=== PATIENT | female | born 1995 | race African-American/Black ===

== ENCOUNTER 2023-03-12 17:18 | Outpatient (CLI) | payer OTHER, SELFPAY ==
[2023-03-12] VITALS (8 sets, daily range): BP systolic 95–143; BP diastolic 41–70; PULSE 87–92
--- NOTE | 2023-03-12 17:55 | PC.NURSE ---
heart tones doppled bedside. FHT 156 at 1755.
[2023-03-12 18:11] LABS: Basophils Percent Auto 0.3 % (0.2-1.2); Eosinophils Percent Auto 0.3 % (0-4.4); Hematocrit 34.7 % (37.0-47.0); Hemoglobin 11.5 g/dL (12.0-15.0); Immature Granulocyte Absolute 0.13 K/mm3 (0.00-0.031); Immature Granulocyte Percent A 1.8 % (0-0.5); Lymphocytes Absolute Auto 1.19 K/mm3 (0.9-3.2); Lymphocytes Percent Auto 16.2 % (18.3-44.2); Mean Corpuscular HGB Conc 33.1 g/dl (32-36); Mean Corpuscular Hemoglobin 30.5 pg (26-34); Mean Platelet Volume 9.4 fl (7.4-10.4); Monocytes Absolute Auto 0.5 K/mm3 (0.1-0.6); Monocytes Percent Auto 7.3 % (2.6-8.5); Neutrophils Absolute Auto 5.5 K/mm3 (1.3-6.7); Neutrophils Percent Auto 74.1 % (45.5-73.1); Platelet Count Result 238 k/mm3 (150-375); Red Blood Count 3.77 M/mm3 (4.2-5.4); Red Cell Distribution Width 12.8 % (11.5-14.5); White Blood Count 7.4 K/mm3 (4.5-10.0)
[2023-03-12 18:21] LABS: Alanine Aminotransferase 21 U/L (6-35); Albumin Level 3.8 g/dL (3.5-5.1); Alkaline Phosphatase 42 U/L (38-126); Anion Gap 9 mmol/L (8-16); Aspartate Amino Transferase 23 U/L (14-36); Bilirubin,Total 0.3 mg/dL (0.2-1.3); Blood Urea Nitrogen 8 mg/dL (7-17); Calcium 9.2 mg/dL (8.4-10.2); Carbon Dioxide 22 mmol/L (22-30); Chloride 104 mmol/L (98-107); Estimated Glomerular Filt Rate > 60; Glucose 103 mg/dL (65-110); Potassium 3.8 mmol/L (3.4-5.0); Sodium 135 mmol/L (137-145); Uric Acid 3.6 mg/dL (2.5-7.5)
[2023-03-12 18:29] LABS: Appearance Urine Clear (Clear); Bilirubin Urine Negative (Negative); Blood Urine Negative (Negative); Color Urine Yellow (Yellow); Glucose Urine UA Negative (Negative); Ketones Urine Negative (Negative); Leukocyte Esterase Ur Negative LEU/UL (NEGATIVE); Nitrate Urine Negative (Negative); Protein Urine Negative (Negative); Specific Grav Ur 1.019 (1.001-1.035)
[2023-03-12 18:35] LABS: Add Urine Microscopic? NO
[2023-03-12 18:54] LABS: Creatinine Urine 112.2 mg/dL
[2023-03-12 18:57] LABS: Total Protein Urine Random < 5 mg/dL; Ur Ttl Prot Creatinine Ratio < 0.04 mg/mg (0-0.20)
--- NOTE | 2023-03-12 19:21 | PC.NURSE ---
Patient worked up for PIH. All labs reported to MD Saavedra. MD Saavedra said ok for patient to go home. Patient given PIH/ Preeclampsia handouts.
== END 2023-03-12 19:30 | disposition home or self-care (01) ==
LOC: ANHOBOP 17:24 → ANHOBPP 17:24
PROVIDERS: PCP Hospitalist; Visit Provider Obstetrics & Gynecology
DX: O13.9 Gestational [pregnancy-induced] hypertension without significant proteinuria, unspecified trimester (principal); Z3A.00 Weeks of gestation of pregnancy not specified
CPT/HCPCS: 36415; 80053; 81003; 82570; 84156; 84550; 85025; 87086; 99199

== ENCOUNTER 2023-07-13 11:57 | Outpatient (RCR) | payer OTHER, SELFPAY ==
[2023-05-26 10:12] VITALS: BP 121/59; PULSE 93
[2023-05-29 11:21] VITALS: BP 129/63; PULSE 93
[2023-06-05 09:53] VITALS: BP 127/69; PULSE 101
[2023-06-08 09:34] VITALS: BP 105/55; PULSE 105
[2023-06-11 10:53] VITALS: BP 107/72; PULSE 93
--- NOTE | 2023-06-15 09:50 | PC.NURSE ---
Pt. arrives to Unit for weekly NST. Reports good movement, HX of gdm. Denies pain, ctx, leaking of fluid/bleeding.
[2023-06-15 10:24] VITALS: BP 110/70; PULSE 91
[2023-06-18 11:16] VITALS: BP 112/59
[2023-06-22 11:55] VITALS: BP 112/43; PULSE 109
[2023-06-26 10:18] VITALS: BP 98/63; PULSE 85
[2023-06-30 10:34] VITALS: BP 115/70; PULSE 108
[2023-07-04 10:04] VITALS: BP 128/86; PULSE 92
[2023-07-08 09:53] VITALS: BP 126/50; PULSE 99
--- NOTE | ~2023-07-13 | US_ITS ---
EXAMINATION: US OB BPP wo non-stress DATE: 07/08/2023 10:22 INDICATION: Insulin-dependent maternal gestational diabetes during third trimester TECHNIQUE: Real-time pelvic ultrasound was performed. The interpreting radiologist was not present fo r the study. COMPARISON: None. FINDINGS: There is a single living fetus in vertex presentation. The placenta is anterior. heart rate is 141 beats per minute (bpm). Amniotic fluid volume is subjectively normal. Biophysical profile performed by the technologist: breathing (30 sec sustained breathing in 30 minutes): 2 out of 2 movement (3 gross body movements in 30 minutes): 2 out of 2 tone (one episode of vdvdbnq-akfaijuae-nbhgnpa limb movement): 2 out of 2 Amniotic fluid pocket (2 cm): 2 out of 2 Total score: 8 out of 8 IMPRESSION: 1. Single living fetus in vertex presentation with heart rate of 141 bpm. 2. Biophysical profile 8 out of 8. Reviewed, dictated and finalized at location A.
--- NOTE | ~2023-07-13 | US_ITS ---
EXAMINATION: US OB BPP wo non-stress DATE: 06/30/2023 11:14 INDICATION: Maternal gestational diabetes during third trimester of . TECHNIQUE: Real-time pelvic ultrasound was performed. The interpreting radiologist was not present fo r the study. COMPARISON: 06/22/2023 FINDINGS: There is a single living fetus in vertex presentation. The placenta is anterior. heart rate is 148 beats per minute (bpm). Biophysical profile performed by the technologist: breathing (30 sec sustained breathing in 30 minutes): 2 out of 2 movement (3 gross body movements in 30 minutes): 2 out of 2 tone (one episode of uztcrbb-qlvnbslye-qupmkmc limb movement): 2 out of 2 Amniotic fluid pocket (2 cm): 2 out of 2 Total score: 8 out of 8 IMPRESSION: 1. Single living fetus in vertex presentation with heart rate of 148 bpm. 2. Biophysical profile 8 out of 8. Reviewed, dictated and finalized at location A.
--- NOTE | ~2023-07-13 | US_ITS ---
EXAMINATION: US OB BPP wo non-stress DATE: 06/22/2023 11:55 INDICATION: Gestational diabetes, third trimester TECHNIQUE: Real-time pelvic ultrasound was performed. The interpreting radiologist was not present fo r the study. COMPARISON: None. FINDINGS: There is a single living fetus in vertex presentation. The placenta is anterior. heart rate is 155 beats per minute (bpm). Biophysical profile performed by the technologist: breathing (30 sec sustained breathing in 30 minutes): 2 out of 2 movement (3 gross body movements in 30 minutes): 2 out of 2 tone (one episode of huocyeb-rnyfsxxoa-oswxlmx limb movement): 2 out of 2 Amniotic fluid pocket (2 cm): 2 out of 2 Total score: 8 out of 8 IMPRESSION: 1. Single living fetus in vertex presentation. 2. Biophysical profile 8 out of 8. Reviewed, dictated and finalized at location B.
--- NOTE | ~2023-07-13 | US_ITS ---
EXAMINATION: US OB BPP wo non-stress DATE: 05/26/2023 10:08 INDICATION: Gestational diabetes, third trimester TECHNIQUE: Real-time pelvic ultrasound was performed. The interpreting radiologist was not present fo r the study. COMPARISON: None. FINDINGS: There is a single living fetus in vertex presentation. The placenta is anterior/fundal. heart r ate is 145 beats per minute (bpm). Biophysical profile performed by the technologist: breathing (30 sec sustained breathing in 30 minutes): 2 out of 2 movement (3 gross body movements in 30 minutes): 2 out of 2 tone (one episode of qnolkcg-izssotayy-wupyxuv limb movement): 2 out of 2 Amniotic fluid pocket (2 cm): 2 out of 2 Total score: 8 out of 8 IMPRESSION: 1. Single living fetus in vertex presentation. 2. Biophysical profile 8 out of 8. Reviewed, dictated and finalized at location A.
--- NOTE | ~2023-07-13 | US_ITS ---
EXAMINATION: US OB BPP wo non-stress DATE: 06/11/2023 10:48 INDICATION: Gestational diabetes, third trimester TECHNIQUE: Real-time pelvic ultrasound was performed. The interpreting radiologist was not present fo r the study. COMPARISON: 06/02/2023 FINDINGS: There is a single living fetus in vertex presentation. The placenta is anterior. heart rate is 144 beats per minute (bpm). Biophysical profile performed by the technologist: breathing (30 sec sustained breathing in 30 minutes): 2 out of 2 movement (3 gross body movements in 30 minutes): 2 out of 2 tone (one episode of auxhgbo-jenerspmr-hcfzuub limb movement): 2 out of 2 Amniotic fluid pocket (2 cm): 2 out of 2 Total score: 8 out of 8 IMPRESSION: 1. Single living fetus in vertex presentation. 2. Biophysical profile 8 out of 8. Reviewed, dictated and finalized at location L.
--- NOTE | ~2023-07-13 | US_ITS ---
EXAMINATION: US OB limited w BPP DATE: 06/02/2023 20:00 INDICATION: variable deceleration; 32 weeks gestation . TECHNIQUE: Real-time ultrasound of the pelvis was performed. COMPARISON: 05/26/2023 FINDINGS: There is a single living fetus in vertex presentation, longitudinal lie. The placenta is anterior an d distant from the cervix. heart rate is 140 bpm. The amniotic fluid index is 13.3 cm, which is normal (5th to 95th percentile is 8.6 to 24.2 cm). Biophysical profile performed by the technologist: breathing (30 sec sustained breathing in 30 minutes): 2 out of 2. movement (3 gross body movements in 30 minutes: 2 out of 2. tone (one episode of tmgpmaq-jufzjghts-hchqfet limb movement): 2 out of 2. Amniotic fluid pocket (2 cm): 2 out of 2. Total score: 8 out of 8. IMPRESSION: Single living fetus in vertex presentation. Biophysical profile 8 out of 8. Normal SAMSON. Reviewed, dictated and finalized at location K.
[2023-07-13 12:43] LABS: Basophils Percent Auto 0.3 % (0.2-1.2); Eosinophils Percent Auto 0.3 % (0-4.4); Hematocrit 38.1 % (37.0-47.0); Hemoglobin 12.7 g/dL (12.0-15.0); Immature Granulocyte Absolute 0.07 K/mm3 (0.00-0.031); Immature Granulocyte Percent A 0.9 % (0-0.5); Lymphocytes Absolute Auto 0.97 K/mm3 (0.9-3.2); Mean Corpuscular HGB Conc 33.3 g/dl (32-36); Mean Corpuscular Hemoglobin 29.4 pg (26-34); Mean Corpuscular Volume 88.2 fl (80-100); Mean Platelet Volume 10.3 fl (7.4-10.4); Monocytes Absolute Auto 0.4 K/mm3 (0.1-0.6); Monocytes Percent Auto 5.9 % (2.6-8.5); Neutrophils Absolute Auto 5.9 K/mm3 (1.3-6.7); Neutrophils Percent Auto 79.6 % (45.5-73.1); Platelet Count Result 193 k/mm3 (150-375); Red Blood Count 4.32 M/mm3 (4.2-5.4); Red Cell Distribution Width 13.3 % (11.5-14.5); White Blood Count 7.5 K/mm3 (4.5-10.0)
[2023-07-13 12:52] LABS: Alanine Aminotransferase 23 U/L (6-35); Albumin Level 3.5 g/dL (3.5-5.1); Alkaline Phosphatase 90 U/L (38-126); Anion Gap 5 mmol/L (8-16); Aspartate Amino Transferase 23 U/L (14-36); Bilirubin,Total 0.5 mg/dL (0.2-1.3); Blood Urea Nitrogen 11 mg/dL (7-17); Calcium 9.2 mg/dL (8.4-10.2); Carbon Dioxide 22 mmol/L (22-30); Chloride 105 mmol/L (98-107); Estimated Glomerular Filt Rate > 60; Glucose 142 mg/dL (65-110); Potassium 3.8 mmol/L (3.4-5.0); Sodium 132 mmol/L (137-145); Uric Acid 4.2 mg/dL (2.5-7.5)
[2023-07-13 13:15] LABS: Add Urine Microscopic? YES; Appearance Urine Clear (Clear); Bacteria Urine 2+ /hpf; Bilirubin Urine 1+ (Negative); Blood Urine 1+ (Negative); Color Urine Yellow (Yellow); Glucose Urine UA Negative (Negative); Ketones Urine 1+ mg/dL (Negative); Leukocyte Esterase Ur Negative LEU/UL (NEGATIVE); Nitrate Urine Negative (Negative); Non Pathogenic Casts 0-2; Protein Urine 1+ mg/dL (Negative); Specific Grav Ur 1.025 (1.001-1.035); Squamous Epithelial Cell Urine Moderate /hpf (Few); WBC Urine 0-5 /hpf (0-3)
[2023-07-13 13:20] LABS: Creatinine Urine 289.8 mg/dL
[2023-07-13 13:23] LABS: Total Protein Urine Random < 5 mg/dL
[2023-07-13 13:24] LABS: Ur Ttl Prot Creatinine Ratio < 0.02 mg/mg (0-0.20)
[2023-07-13 15:00] VITALS: BP 114/66; PULSE 85
--- NOTE | 2023-07-13 15:07 | WPDANESEPP ---
Anes - Eval Pre Procedure Procedure: c/s Date/Time: 07/13/23 15:07 Preop Diagnosis: macrosomia Pre Op Diagnosis: NST, BPP Patient Data Age: 28 Gender: F Height: Weight: Last Vital Signs Pulse 99 07/08/23 09:53 BP 126/50 L 07/08/23 09:53 Allergies Allergy/AdvReac Type Severity Reaction Status Date / Time No Known Allergies Allergy Verified 07/06/23 08:54 Home Medications Medication Instructions Recorded Confirmed Type aspirin 81 mg tablet,delayed 162 mg PO DAILY 02/16/23 07/06/23 History release (Adult Low Dose Aspirin) insulin lispro 200 unit/mL (3 mL) See Rx Instructions subcut BID #6 04/16/23 07/06/23 Rx subcutaneous pen (Humalog KwikPen mL U-200 Insulin) insulin glargine-yfgn 100 unit/mL See Rx Instructions subcut DAILY 04/20/23 07/06/23 Rx (3 mL) subcutaneous pen (Semglee #15 mL (insulin glargine-yfgn) Pen) vit no.95-ferrous 1 tablet PO DAILY 06/11/23 07/06/23 History fumarate 28 mg-folic acid 800 mcg tablet () Laboratory Tests 07/13/23 07/13/23 07/13/23 12:33 13:08 14:53 WBC 7.5 K/mm3 (4.5-10.0) RBC 4.32 M/mm3 (4.2-5.4) Hgb 12.7 g/dL (12.0-15.0) Hct 38.1 % (37.0-47.0) MCV 88.2 fl (80-100) MCH 29.4 pg (26-34) MCHC 33.3 g/dl (32-36) RDW 13.3 % (11.5-14.5) Plt Count 193 k/mm3 (150-375) MPV 10.3 fl (7.4-10.4) Immature Gran % (Auto) 0.9 H % (0-0.5) Neut % (Auto) 79.6 H % (45.5-73.1) Lymph % (Auto) 13.0 L % (18.3-44.2) Preble % (Auto) 5.9 % (2.6-8.5) Eos % (Auto) 0.3 % (0-4.4) Baso % (Auto) 0.3 % (0.2-1.2) Lymph # (Auto) 0.97 K/mm3 (0.9-3.2) Preble # (Auto) 0.4 K/mm3 (0.1-0.6) Eos # (Auto) 0.0 K/mm3 (0-0.3) Baso # (Auto) 0.0 K/mm3 (0.0-0.1) Abs Immat Gran (auto) 0.07 H K/mm3 (0.00-0.031) Absolute Neuts (auto) 5.9 K/mm3 (1.3-6.7) Absolute Nucleated RBC 0.0 K/mm3 (0.0-0.012) Nucleated RBC % 0.0 % (0.0-0.2) Sodium 132 L mmol/L (137-145) Potassium 3.8 mmol/L (3.4-5.0) Chloride 105 mmol/L (98-107) Carbon Dioxide 22 mmol/L (22-30) Anion Gap 5 L mmol/L (8-16) BUN 11 mg/dL (7-17) Creatinine 0.70 mg/dL (0.7-1.0) Estim Creat Clear Calc Not Reportable Estimated GFR > 60 (59 - ) Glucose 142 H mg/dL (65-110) Uric Acid 4.2 mg/dL (2.5-7.5) Calcium 9.2 mg/dL (8.4-10.2) Total Bilirubin 0.5 mg/dL (0.2-1.3) AST 23 U/L (14-36) ALT 23 U/L (6-35) Alkaline Phosphatase 90 U/L (38-126) Total Protein 7.0 g/dL (6.3-8.2) Albumin 3.5 g/dL (3.5-5.1) Urine Color Yellow (Yellow) Urine Appearance Clear (Clear) Urine pH 6.0 (5.0-9.0) Ur Specific Gilbert 1.025 (1.001-1.035) Urine Protein 1+ H mg/dL (Negative) Urine Glucose (UA) Negative mg/dL (Negative) Urine Ketones 1+ H mg/dL (Negative) Ur Blood (Man) 1+ H (Negative) Urine Nitrate Negative (Negative) Urine Bilirubin 1+ H (Negative) Urine Urobilinogen 1.0 mg/dL (<2.0) Ur Leukocyte Esterase Negative DOTTIE/UL (NEGATIVE) Urine RBC 11-20 H /hpf (0-2) Urine WBC 0-5 /hpf (0-3) Ur Squamous Epith Cells Moderate /hpf (Few) Urine Bacteria 2+ H /hpf Urine Casts 0-2 U Random Total Protein < 5 mg/dL Urine Creatinine 289.8 mg/dL Protein/Creat Ratio 2 < 0.02 mg/mg (0-0.20) RPR Pending Patient hx anesthesia problems: none Family hx anesthesia problems: none Prior surgeries: previous vaginal deliv
--- NOTE | 2023-07-13 16:29 | PM.IMHP ---
H&P: HPI History of Present Illness Date/Time: 07/13/23 16:29 28-year-old female presents at 39 weeks for primary delivery. She is a 2 para 1 1 prior vaginal delivery, this being a 6lb delivery in 2013. This has been complicated by obese ED, as well as gestational diabetes for which she is currently on insulin and metformin. Recent ultrasound revealed 4300g baby and recommendation was to proceed with delivery for which she agrees. Remainder of records are on the chart and available for review. Chief Complaint: Review of Systems Constitutional: Constitutional: Reports as per [facility] Past Medical History Medical History Abnormal glucose tolerance in Encounter for IUD insertion (10/03/15) Mirena insertion Encounter for IUD removal (02/20/20) Mirena removal Encounter for screening examination for sexually transmitted disease Gestational diabetes H/O trichomonal vaginitis (02/10/22) treated with meds Prediabetes Vaginal discharge Family History Family History Other Breast cancer maternal aunt Social History Social History Smoking status: Never smoker Alcohol intake: former Alcohol use details: ocassional Substance use: never Substance use type: does not use Lack of Transportation: No Lack of Food: Never True Current Housing: I Have Housing Concerned About Future Housing: No Difficulty Paying Gas/Electric Bills: No Difficulty Paying for Meds: No Currently Unemployed: No Education: Bachelor's Degree Difficulty w/ Childcare or Family Care: No Living arrangements: other Additional living arrangements comments: single 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 Gender identity (if verbalized by the patient): Female Sexual Orientation (if Verbalized by the Patient): Straight or Heterosexual Spiritual care concerns: No Meds Home Medications and Allergies Home Medications Medication Instructions Recorded Confirmed Type aspirin 81 mg tablet,delayed 162 mg PO DAILY 02/16/23 07/06/23 History release (Adult Low Dose Aspirin) insulin lispro 200 unit/mL (3 mL) See Rx Instructions subcut BID #6 04/16/23 07/06/23 Rx subcutaneous pen (Humalog KwikPen mL U-200 Insulin) insulin glargine-yfgn 100 unit/mL See Rx Instructions subcut DAILY 04/20/23 07/06/23 Rx (3 mL) subcutaneous pen (Semglee #15 mL (insulin glargine-yfgn) Pen) vit no.95-ferrous 1 tablet PO DAILY 06/11/23 07/06/23 History fumarate 28 mg-folic acid 800 mcg tablet () Allergies Allergy/AdvReac Type Severity Reaction Status Date / Time No Known Allergies Allergy Verified 07/06/23 08:54 Vital Signs Vital Signs - 24 hr 07/13/23 15:00 Pulse Rate 85 Blood Pressure [Left Arm] 114/66 Exam Const: General: cooperative, healthy appearing and comfortable Resp: Effort & Inspection: normal respiratory effort Auscultation: clear to auscultation bilaterally Cardio: Rate: regular rate Rhythm: regular rhythm GI: Inspection: normal to inspection Auscultation: normal bowel sounds : Bimanual exam- vagina & uterus: enlarged ( fundal height 43cm heart tone 140) H&P: Results Labs Labs: Short CBC 07/13/23 Range/Units 12:33 WBC 7.5 (4.5-10.0) K/mm3 Hgb 12.7 (12.0-15.0) g/dL Hct 38.1 (37.0-47.0) % Plt Count 193 (150-375) k/mm3 BMP 07/13/23 12:33 Sodium 132 L Potassium 3.8 Chloride 105 Carbon Dioxide 22 BUN 11 Creatinine 0.70 Glucose 142 H Calcium 9.2 Liver Function 07/13/23 Range/Units 12:33 Total Bilirubin 0.5 (0.2-1.3) mg/dL AST 23 (14-36) U/L ALT 23 (6-35) U/L Alkaline Phosphatase 90 (38-126) U/L Albumin 3.5 (3.5-5.1) g
[2023-07-14 13:24] LABS: Rapid Plasma Reagin Non-Reactive (NonReactive)
== END 2023-08-20 11:27 | disposition home or self-care (01) ==
LOC: ANHOBOP 11:57
PROVIDERS: PCP Hospitalist; Visit Provider Obstetrics & Gynecology
DX: O24.419 Gestational diabetes mellitus in pregnancy, unspecified control (principal); Z3A.31 31 weeks gestation of pregnancy; Z3A.32 32 weeks gestation of pregnancy; Z3A.33 33 weeks gestation of pregnancy; O36.8130 Decreased fetal movements, third trimester, not applicable or unspecified; Z3A.34 34 weeks gestation of pregnancy; Z3A.35 35 weeks gestation of pregnancy; Z3A.36 36 weeks gestation of pregnancy; Z3A.37 37 weeks gestation of pregnancy; Z3A.38 38 weeks gestation of pregnancy
CPT/HCPCS: 36415; 59025; 76815; 76819; 80053; 81001; 82570; 84156; 84550; 85025; 86592; 86850; 86900; 86901

== ENCOUNTER 2023-07-14 04:25 | Inpatient (IN) | payer OTHER, SELFPAY ==
[2023-07-14] VITALS (49 sets, daily range): BP systolic 93–143; BP diastolic 43–120; PULSE 71–251; RESP 16–21; TEMP 36.1–36.8; O2SAT 81–100; BMI 64.0
--- NOTE | 2023-07-14 04:57 | LDADM ---
This patient, Haylee Mack, was admitted to Labor/Delivery/Recovery 119 on 07/14/23 at 04:25. Plans for labor, pain management and were discussed with patient. Patient/family oriented to hospital policies and general routines including ID bracelet, bed and alarms, visiting hours, pain management, procedures, bathroom and other care routines, personal items, smoking policy, room service/diet and guest tray routines, security routines, and visiting hours. Patient/Family are encouraged to report perceived risks to care and to ask questions if they do not understand what they are told or what they should do. See OBIX for further documentation.
[2023-07-14] MEDS: LACTATED RINGERS 1,000 ML 999 ML IV CONT (05:20)
--- NOTE | 2023-07-14 06:01 | P.PNAN_ITS ---
Anes - Eval Final PreProcedure Day of Procedure 07/14/23 06:01 Patient weight: super morbidly obese Heart: regular rate and rhythm Lungs: clear to auscultation and normal air movement Airway: Mallampati scale class II Neurological: alert and oriented Last oral intake: >/= 8 hours ASA classification: III Emergent: no Anesthetic plan: proceed Anesthesia type and monitoring: regional spinal and standard monitoring Results Review: All pre-operative results and documents have been reviewed as part of the pre- operative evaluation. Informed Consent: The patient's anesthetic plan and its attendant risks and benefits were discussed with the patient/family/POA. Questions were solicited and answers provided to the satisfaction of the patient/family/POA.
--- NOTE | 2023-07-14 06:23 | WPDHPUPDATE1 ---
History and Physical Update Update Date/Time: 07/14/23 06:23 History and Physical has been reviewed, including an updated exam of the patient. There are NO changes in the patient's condition. Risks, benefits, and alternatives have been discussed and questions answered. Patient agrees to proceed with procedure.
[2023-07-14] MEDS: ceFAZolin 3 GM/D5W 100 ML 100 ML IVPB (06:25)
--- NOTE | 2023-07-14 07:41 | PM.OBPRVD ---
OB - Delivery Note Procedure Procedure: Procedures Operation Date: 07/14/23 06:30 <No data on this case meets the specified criteria> Events: Gestational Diabetes and Macrosomia Delivery monitor: External FHT and External Uterine Route of delivery: Prior to decision for section, ACOG/SMFM labor guidelines were considered and discussed with the patient and staff. Decision made to proceed with the section.: Yes Specimen: Yes Quantitative Blood Loss (ml): 745 Anesthesia type: Epidural Disposition: PACU Complications: None Narrative: Patient prepped draped usual manner for this procedure. Pfannenstiel incision was made and carried down to the fascia through the subcutaneous tissue. Fascia was then extended bilaterally the length of skin incision superiorly and inferiorly the rectus muscles were then dissected and the fascia was dissected away from the rectus muscles. Peritoneum was then entered and bladder flap developed difficulty. Uterus was scored low transverse manner and clear fluid was noted. Vertex was delivered out difficulty, rest of baby was delivered cord clamped cut placenta was removed manually. Uterus was exteriorized cleared of membranes and clots and then closed using 0 Monocryl running interlocking manner with good hemostasis and approximation noted. Uterus was turned the abdomen and both gutters were cleared of serosanguineous fluid and clots fascia was approximated 0 Vicryl left angle midline in a running midline with good approximation noted. Subcutaneous tissue was cauterized bleeders and closed is running manner to approximate the subcuticular space. Skin tiffany then used to approximate the skin with good approximation noted. Patient sent to recovery room in stable condition. [place] Baby Weeks of gestation at delivery: 39 Infant gender: Male Weight (pounds): 9 Weight (ounces): 14 presentation: vertex Placenta delivery description: Manual Removal Cord Vessel Description: 3 Vessels score one minute: 8 score five minutes: 9 AMG Delivery Billing Delivery Delivery: Delivery Charge
[2023-07-14] MEDS: OXYTOCIN 30 UNITS/NS 500 ML 30 UNITS/500 ML BAG 125 UNITS IV CONT (08:15)
--- NOTE | 2023-07-14 12:46 | OBPPTRN ---
1032 Patient transferred to post room #277 via bed. Support person present. Oriented to unit, room, information board, rooming in, admission packet and security measures. Patient verbalizes understanding.
[2023-07-14] MEDS: DEXTROSE 5%/0.45% SOD CHL 1,000 ML 125 ML IV CONT (13:12)
--- NOTE | 2023-07-14 15:25 | PC.NURSE ---
Addendum entered by Palmira Rendon RN 07/14/23 15:31: note [id number] Original Note: [id number] Introductions were made, then consulted with patient to assess needs related to . Mother led the conversation with her?plans to feed?her and the?experience so far. Mother works well with her with encouragement and education. Encouraged understanding of the benefits of skin to skin (demonstrating unwrapping infant and placing upright on her chest), stimulating with massage touch, changing positions to encourage wakefulness, how to watch for early feeding cues, responsive feeding, feeding on demand (aiming for 8-12 times in 24 hours, about every 2-3 hours), milk production, building/maintaining a milk supply, duration of feeding, signs of adequate intake/output and how to record on the feeding sheet. Reviewed positioning, alignment, supporting the breast to facilitate a deep latch, rolled up wash rag to lift the breast, asymmetrical latch (off-center), leading with the chin with a big, open, wide gape and body close to mother. latched optimally to the left breast in football position. Education given to parents of how to visualize suck/swallow ratios and listen for drinking at the breast. was able to maintain latch without discomfort to mother. Infant at times latched shallow. Discussed with the parents how to assess a good latch with swallowing versus and shallow latch with piston sucking and misshaped nipples. Mothers nipples are dimpled and infant can pull them out. Infant repositioned, breast movement was visualized increased at the top lip and infant was detached. Infant was brought to the right breast with football positioning and latched effectively at the breast. Nipple care reviewed with optimal latch and good positioning. Reminding mother of comfort measures of healing with a warm and wet washcloth to rinse breast, then leave open to air-dry as needed. Reviewed good handwashing when or touching the breast/nipples to prevent infection. Resources used to facilitate learning were used with the tool. Parents voiced understanding of skin to skin, stimulating with massage touch, responsive feedings, encourage if it has been 2 -2.5 hours since the start of the last , to call if infant does not latch, or if there is discomfort with . Resources provided for inpatient with name written on the communication board. Parents voiced understanding of information, demonstrated learning and will call if there is a request for assistance. Reported to primary RN.
[2023-07-14] MEDS: IBUPROFEN 600 MG TABLET PO (23:56)
[2023-07-14] MEDS: HYDROcodone/acetaminophen (*CRX) 5-325 MG TABLET 1 TAB PO (23:56)
[2023-07-15 03:50] VITALS: BP 120/71; PULSE 86; RESP 20; TEMP 36.6; O2SAT 100
[2023-07-15] MEDS: HYDROcodone/acetaminophen (*CRX) 5-325 MG TABLET 1 TAB PO ×3 (03:50→13:47)
[2023-07-15 04:00] LABS: Basophils Percent Auto 0.3 % (0.2-1.2); Eosinophils Percent Auto 0.3 % (0-4.4); Hematocrit 32.3 % (37.0-47.0); Hemoglobin 10.5 g/dL (12.0-15.0); Immature Granulocyte Absolute 0.04 K/mm3 (0.00-0.031); Immature Granulocyte Percent A 0.5 % (0-0.5); Lymphocytes Absolute Auto 1.09 K/mm3 (0.9-3.2); Lymphocytes Percent Auto 14.9 % (18.3-44.2); Mean Corpuscular HGB Conc 32.5 g/dl (32-36); Mean Corpuscular Hemoglobin 29.4 pg (26-34); Mean Corpuscular Volume 90.5 fl (80-100); Mean Platelet Volume 10.3 fl (7.4-10.4); Monocytes Absolute Auto 0.7 K/mm3 (0.1-0.6); Monocytes Percent Auto 9.1 % (2.6-8.5); Neutrophils Absolute Auto 5.5 K/mm3 (1.3-6.7); Neutrophils Percent Auto 74.9 % (45.5-73.1); Platelet Count Result 170 k/mm3 (150-375); Red Blood Count 3.57 M/mm3 (4.2-5.4); Red Cell Distribution Width 13.4 % (11.5-14.5); White Blood Count 7.3 K/mm3 (4.5-10.0)
[2023-07-15] MEDS: IBUPROFEN 600 MG TABLET PO ×3 (07:02→19:33)
[2023-07-15 07:25] VITALS: BP 130/75; PULSE 79; RESP 18; TEMP 36.8; O2SAT 97
[2023-07-15] MEDS: MULTIVIT/MIN/PREN/FOL AC/IRON TABLET 1 TAB PO (09:51)
[2023-07-15] MEDS: DOCUSATE SODIUM 100 MG CAPSULE PO ×2 (09:51→15:48)
--- NOTE | 2023-07-15 11:51 | PC.NURSE ---
[id number] Purposefully rounded to assess needs. Mother is holding her icvh-dc-vumu after bottle feeding with no attempt. Reviewed with mother her desires to feed her and she is undecided. She may continue to breastfeed or pump and feed breast milk in a bottle. Reviewed stimulating breast 8-12 times in 24 hours (approximately 2-3 hours) with or pumping to protect the milk supply. Resources used to facilitate learning were used from the mom and baby guide. Mother voiced understanding of the education shared, to call for assistance if the infant does not latch, if she would like to initiate pumping or if there is discomfort with . Reported to the primary RN.
--- NOTE | 2023-07-15 14:02 | PM.GYNPNOP ---
SOLAR SYSTEMS DESIGNER - A/P Postoperative Procedures: Procedures Operation Date: 07/14/23 06:30 Actual Procedure Side Surgeon p Section Not Applicable Mario Cottrell MD Time Spent With Patient Time: Total time spent is greater than 50% in coordination of care (as documented) at patient's floor/unit and/or counseling patient: Time with patient: 15 - 25 minutes SOLAR SYSTEMS DESIGNER- PN:Subj Post-Op Subjective Date/time seen: 07/15/23 14:03 S: Diet tolerated, ambulation well. Has yet to urinate today though catheter is just been removed. Pain well controlled though does need hydrocodone. O: Vital signs stable /afebrile Lungs clear Abdomen positive bowel sounds soft bandage in place Labs: Reviewed A: 1. Postop day 1 status post primary delivery for macrosomia and poorly controlled gestational diabetes P: 1. Increase diet and activity as tolerated 2. Instructed to attempt Tylenol and ibuprofen alternating with hydrocodone reserve for significant discomfort 3. Expect discharge on postop day 3 SOLAR SYSTEMS DESIGNER - PN: Obj Data Vital Signs Vital Signs: Vital Signs - 24 hr 07/14/23 16:55 07/14/23 17:31 07/14/23 19:35 Temperature 96.9 F L Pulse Rate 86 Respiratory Rate 20 Blood Pressure 105/57 L Pulse Oximetry 97 Oxygen Delivery Room Air Room Air 07/14/23 19:35 07/15/23 03:50 07/15/23 03:50 Temperature 98.2 F 97.9 F Pulse Rate 84 86 Respiratory Rate 18 20 Blood Pressure 115/70 120/71 Pulse Oximetry 100 100 Oxygen Delivery Room Air 07/15/23 07:02 07/15/23 07:25 Temperature 98.2 F Pulse Rate 79 Respiratory Rate 18 Blood Pressure 130/75 Pulse Oximetry 97 Oxygen Delivery Room Air Intake/Output Intake/Output: Intake & Output 07/12/23 07/13/23 07/14/23 07/15/23 23:59 23:59 23:59 23:59 Intake Total 1999 1899 Output Total 1651 8135 Balance 342 625 Meds/Results Medications: Active Medications Generic Name Dose Route Start Last Admin Trade Name Freq PRN Reason Stop Dose Admin Acetaminophen 650 mg 07/14/23 10:35 Acetaminophen 325 Mg Tablet PO Q6H PRN Mild Pain (1-3) Hydrocodone Bitart/Acetaminophen 1 tab 07/14/23 10:35 Hydrocodone/Acetaminophen (*Crx) 10-325 Mg Tablet PO Q3H PRN Pain Rated 7-10 Hydrocodone Bitart/Acetaminophen 1 tab 07/14/23 10:35 07/15/23 13:47 Hydrocodone/Acetaminophen (*Crx) 5-325 Mg Tablet PO 1 tab Q3H PRN Administration Moderate Pain (4-6) Bisacodyl 10 mg 07/14/23 10:35 Bisacodyl 10 Mg Suppository RECTAL ONCE PRN Constipation Docusate Sodium 100 mg 07/14/23 10:35 07/15/23 09:51 Docusate Sodium 100 Mg Capsule PO 100 mg BID MELIDA Administration Emollient Ointment 1 applic 07/14/23 10:35 Lanolin (Lansinoh) 7.5 Gm Cream TOPICAL PRN PRN Sore Nipples Ibuprofen 600 mg 07/14/23 10:35 07/15/23 13:46 Ibuprofen 600 Mg Tablet PO 600 mg Q6H PRN Administration Cramping Ketorolac Tromethamine 30 mg 07/14/23 10:35 Ketorolac 30 Mg/Ml Vial (*Bkc) IV PUSH Q6H PRN Pain Rated 4-6 Naloxone HCl 0.1 mg 07/14/23 10:35 Naloxone Hcl 0.4 Mg/Ml Vial IV PUSH Q2M PRN Opiate Reversal Ondansetron HCl 4 mg 07/14/23 10:35 Ondansetron Inj 4 Mg/2 Ml Vial IV PUSH Q6H PRN Nausea Polysaccharide Iron Complex 150 mg 07/14/23 10:35 07/14/23 19:55 Polysaccharide Iron Complex 150 Mg Capsule PO Not Given BIDWM MELIDA Vit/Calcium/Iron/Folic Ac 1 tab 07/14/23 10:35 07/15/23 09:51 Multivit/Min/Pren/Fol Ac/Iron Tablet PO 1 tab DAILY MELIDA Administration Simethicone 80 mg 07/14/23 10:35 Simethicone 80 Mg Tab.Chew PO Q2H PRN Gas Zolpidem Tartrate 5 mg 07/14/23 10:35 Zolpidem Tartrate (*Crx) 5 Mg Tablet PO HS PRN Insomnia Labs 07/15/23 03:54 Labs: Laboratory Results - last 24 hr 07/15/23 03:54 WBC 7.3 RBC 3.57 L Hgb 10.5 L Hct 32.3 L MCV 90.5 MCH
--- NOTE | 2023-07-15 14:34 | PC.NURSE ---
1430 - Breast pump provided due to mother's request by RN on orientation Kaylee. Reported to RN to assess flange fit. Reviewed instructions given to patient that there should be no pain with pumping, reviewed what a proper flange fit should look like, earlier today we discussed to pump for comfort and nipple stretching/stimulation for adequate milk production every 3 hours (8 times in 24 hours) 1-2 times at night. Mother voiced understanding of the education shared along with mom and baby guide and pumping handout for additional resource information. Reported to the primary RN.
[2023-07-15] MEDS: LANOLIN (LANSINOH) 7.5 GM CREAM 1 APPLIC TOPICAL (15:48)
[2023-07-15] MEDS: HYDROcodone/acetaminophen (*CRX) 10-325 MG TABLET 1 TAB PO ×2 (16:40→19:32)
[2023-07-15 19:45] VITALS: BP 147/97; PULSE 87; RESP 18; TEMP 36.6; O2SAT 99
[2023-07-15] MEDS: ONDANSETRON HCL ODT 4 MG TABLET (21:10)
[2023-07-16] MEDS: IBUPROFEN 600 MG TABLET PO ×3 (05:01→21:40)
[2023-07-16] MEDS: HYDROcodone/acetaminophen (*CRX) 10-325 MG TABLET 1 TAB PO ×2 (05:01→17:09)
[2023-07-16 07:50] VITALS: BP 148/70; PULSE 82; RESP 18; TEMP 36.7; O2SAT 99
[2023-07-16] MEDS: HYDROcodone/acetaminophen (*CRX) 5-325 MG TABLET 1 TAB PO ×3 (08:32→21:40)
[2023-07-16] MEDS: DOCUSATE SODIUM 100 MG CAPSULE PO ×2 (08:33→17:09)
--- NOTE | 2023-07-16 09:30 | WPDANLDPN2 ---
Anes-Prog Note L&D Date/Time: 07/16/23 09:30 Comfortable throughout: section Neuraxial method: spinal Epidural/Spinal procedure site: clean & non-tender Neuro status: Neuro function grossly intact. Cardiovascular status: normal Respiratory status: normal Airway patency: baseline Mental status: baseline Post-Op hydration status: normal Vital Signs: Last Vital Signs Temp 36.6 C 07/15/23 19:45 Pulse 87 07/15/23 19:45 Resp 18 07/15/23 19:45 BP 147/97 H 07/15/23 19:45 Pulse Ox 99 07/15/23 19:45 O2 Del Method Room Air 07/15/23 19:45 Pain score (VAS): 10/14 I/O: Intake & Output 07/15/23 07/16/23 07/16/23 23:59 07:59 15:59 Intake Total 240 Balance 240 Post-procedural complaints: none Patient feedback: Patient satisfied with anesthetic care.
--- NOTE | 2023-07-16 09:30 | WPDANLDNPN2 ---
Anes-Prog Note L&D-Neuraxial Date/Time: 07/16/23 09:30 Neuraxial medications: intrathecal PF morphine Opiod-related complaints: none Patient feedback: Patient satisfied with post-operative pain management.
--- NOTE | 2023-07-16 11:20 | PM.OBDSVD ---
DS: Admitting Diagnosis Discharge Date [id number] Admitting Diagnosis OB - DS: Summary OB Procedures : NST OB Procedures Intrapartum: OB Procedures: : None Peripartum Data Procedures: Procedures Operation Date: 07/14/23 06:30 Actual Procedure Side Surgeon p Section Not Applicable Mario Cottrell MD Time Spent with Patient Time attestation: Total time spent providing and/or coordinating discharge services: DS: Data Data Completed and Pending Pending studies at discharge: Pending at discharge 07/14/23 07:15 Surgical [PTH] Routine Discharge Plan Discharge Discharging Clinician: Mario Cottrell Patient Disposition: Home, Self-Care Activity: may shower, no straining, no driving and follow weight bearing status Diet: as tolerated Discharge Instructions: 1. office thursday/thursday for staple removal Patient Instructions: Antibiotic Form Stand Alone Forms: General Discharge Information Follow-up/Referrals: Mario Cottrell MD [Physician] - 2 Weeks Discharge Medications: New hydrocodone-acetaminophen 5-325 mg Tablet 1 tablet PO Q3H Qty: 30 0RF ibuprofen 600 mg Tablet 600 mg PO Q6H PRN (Reason: Cramping) Qty: 30 0RF Continued PNV cmb#95-ferrous fumarate-FA [] 28 mg iron- 800 mcg Tablet 1 tablet PO DAILY Discontinued aspirin [Adult Low Dose Aspirin] 81 mg tablet,delayed release (DR/EC) 162 mg PO DAILY Humalog KwikPen Insulin 200 unit/mL (3 mL) insulin pen See Rx Instructions subcut BID Qty: 6 3RF Rx Instructions: 4 units subcutaneously before breakfast and lunch; 10 units subcutaneously before dinner insulin glargine-yfgn [Semglee(insulin glarg-yfgn)Pen] 100 unit/mL (3 mL) insulin pen See Rx Instructions subcut DAILY Qty: 15 3RF Rx Instructions: 28 units subcutaneously qAM; 58 units subcutaneously qPM Date of admission: 07/14/23 04:25 Primary Care Provider: Jalyn,Marychuy Najera Admitting Provider: Mario Cottrell Attending physician on admission: Mario Cottrell Condition: Stable
--- NOTE | 2023-07-16 15:40 | PC.NURSE ---
1549 Patient requested an abdominal binder, given by RN.
--- NOTE | 2023-07-16 15:45 | PC.NURSE ---
[id number] Mother led the conversation with her experience and plan to feed her infant so far using the feeding plan. Mother is pumping and was encouraged to improve consistency to protect her milk supply. Reminded mother to use good handwashing technique to prevent infection. Mother is feeding appropriately for growth of and understands stimulating infant to eat if needed. Infant has had appropriate feedings in the last 24 hours meets the outcomes for weight, output and jaundice at this time. Mother states she is confident to continue effectively feed her at home, when to call for assistance and denies any additional assistance or education at this time. Reinforced understanding of milk production, transition of milk, signs of adequate intake, transition of stool, prevention/relief of engorgement, plugged ducts, mastitis, responsive watching for feeding cues, the different methods of stimulating infant to breastfeed 2-3 hours after the start of the last feeding, community resources, and when to call a provider using the resource of the mom and baby guide. Mother voiced understanding of the education shared. Reported to the primary RN.
[2023-07-16 19:40] VITALS: BP 120/55; PULSE 103; RESP 16; TEMP 36.4; O2SAT 97
[2023-07-17] MEDS: HYDROcodone/acetaminophen (*CRX) 5-325 MG TABLET 1 TAB PO ×2 (02:45→09:11)
[2023-07-17] MEDS: IBUPROFEN 600 MG TABLET PO ×2 (02:45→09:10)
[2023-07-17 08:10] VITALS: BP 126/86; PULSE 99; RESP 18; TEMP 36.6; O2SAT 98
[2023-07-17] MEDS: MULTIVIT/MIN/PREN/FOL AC/IRON TABLET 1 TAB PO (09:10)
[2023-07-17] MEDS: DOCUSATE SODIUM 100 MG CAPSULE PO (09:11)
[2023-07-18 08:33] VITALS: BP 118/64; PULSE 94; RESP 18; TEMP 36.7; O2SAT 98
--- NOTE | 2023-08-03 13:44 | PM.IMHP ---
H&P: HPI History of Present Illness Date/Time: 08/03/23 13:44 28-year-old female presents at 39 weeks gestation for primary to delivery. She has a macrosomic infant, and poorly controlled gestational diabetes. Remainder of records are on the chart and can be reviewed. Chief Complaint: Review of Systems Review of Systems: All systems reviewed & are unremarkable except as noted in HPI and below PMFSH Past Medical History Medical History Abnormal glucose tolerance in Encounter for IUD insertion (10/03/15) Mirena insertion Encounter for IUD removal (02/20/20) Mirena removal Encounter for screening examination for sexually transmitted disease Gestational diabetes H/O trichomonal vaginitis (02/10/22) treated with meds Prediabetes Vaginal discharge Family History Family History Other Breast cancer maternal aunt Social History Social History Smoking status: Never smoker Alcohol intake: former Alcohol use details: ocassional Substance use: never Substance use type: does not use Lack of Transportation: No Lack of Food: Never True Current Housing: I Have Housing Concerned About Future Housing: No Difficulty Paying Gas/Electric Bills: No Difficulty Paying for Meds: No Currently Unemployed: No Education: Bachelor's Degree Difficulty w/ Childcare or Family Care: No Living arrangements: other Additional living arrangements comments: single 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 Gender identity (if verbalized by the patient): Female Sexual Orientation (if Verbalized by the Patient): Straight or Heterosexual Spiritual care concerns: No Meds Home Medications and Allergies Home Medications Medication Instructions Recorded Confirmed Type vit no.95-ferrous 1 tablet PO DAILY 06/11/23 07/14/23 History fumarate 28 mg-folic acid 800 mcg tablet () ibuprofen 600 mg tablet 600 mg PO Q6H PRN Cramping #30 tabs 07/16/23 Rx hydrocodone 5 mg-acetaminophen 325 1 tablet PO Q3H Moderate Pain 07/29/23 Rx mg tablet (4-6) #30 tabs Allergies Allergy/AdvReac Type Severity Reaction Status Date / Time No Known Allergies Allergy Verified 07/22/23 08:37 Exam Const: General: cooperative, healthy appearing and comfortable Resp: Effort & Inspection: normal respiratory effort Auscultation: clear to auscultation bilaterally Cardio: Rate: regular rate Rhythm: regular rhythm GI: Inspection: normal to inspection Auscultation: normal bowel sounds : Bimanual exam- vagina & uterus: enlarged ( Fundal height 40cm heart tone 140) Assessment and Plan Assessment and plan (1) 39 weeks gestation of : Code(s): Z3A.39 - 39 weeks gestation of Status: Acute (2) Gestational diabetes: Code(s): O24.419 - Gestational diabetes mellitus in , unspecified control Status: Acute (3) Macrosomia: Code(s): P08.0 - Exceptionally large baby Status: Acute Plan proceed with primary low-transverse section
== END 2023-07-17 11:10 | disposition home or self-care (01) | DRG 788 ==
LOC: ANHLDR 04:29 → ANHOB2 10:50
PROVIDERS: Admitting Provider Obstetrics & Gynecology; PCP Hospitalist; Visit Provider Obstetrics & Gynecology
PROC: 10D00Z1 Extraction of Products of Conception, Low, Open Approach (ICD-10-PCS; CPT 59514; principal; 2023-07-14 06:30)
DX: O24.429 Gestational diabetes mellitus in childbirth, unspecified control (principal); Z37.0 Single live birth; Z3A.38 38 weeks gestation of pregnancy; O36.63X0 Maternal care for excessive fetal growth, third trimester, not applicable or unspecified
CPT/HCPCS: 36415; 85025; 88307; A9270; J0690; J2274; J2590; J7120

== ENCOUNTER 2025-08-01 14:12 | Outpatient (CLI) | payer OTHER, MEDICAID, SELFPAY ==
[2025-08-01 15:59] LABS: Beta HCG Quantitative < 2.39 mIU/ML
--- OUTSIDE RECORDS SUMMARY | 2025-08-01 16:28 | XMS_ITS | Encounter Summary ---
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 Role Phone Marychuy Martinez MD Primary Care Pro vider Reason for Visit * Reason Comments Med Refill Encounter Details Date Type Department Care Team ([facility] Contact Info) Description 07/18/2025 Telephone [facility] Primary Care at [address] [phone] Marychuy Martinez MD [address] [place] [id number] Med Refill Social History Tobacco Use Types Packs/Day Years Used Date Smoking Tobacco: Never Smokeless Tobacco: Never Alcohol Use Standard Drinks/Week Comments Not Currently 0 (1 standard drink = 0.6 oz pur e alcohol) AUDIT-C Answer Date Recorded Q1: How often do you have a drink containing alc ohol? Monthly or less 04/11/2025 Q2: How many drinks containi ng alcohol do you have on a typical day when you are drinking? 1 or 2 04/11/2025 Q3: How often do you have si x or more drinks on one occasion? Never 04/11/2025 PHQ-2 Answer Date Recorded PHQ-2 Total Score (If total score is 3 or more points, staff should administer the PHQ-9) 0 06/22/2025 PHQ-9 Answer Date Recorded PHQ-9 Total Score 1 09/26/2024 Personal Safety Answer Date Recorded Have you ever been in or are you currently in a harmful physical or emotional relationship or is someone making you feel afraid or unsafe? 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 Patient verbalized understanding. * Telephone Encounter - Mt Aparicio LPN - 07/18/2025 10:26 AM CDT L/M for patient to return my call regarding refill request. * Telephone Encounter - Marychuy Martinez MD - 07/18/2025 8:58 AM CDT Needs to check labs before refill, orders in. documented in this encounter Plan of Treatment Not on file documented as of this encounter Visit Diagnoses Diagnosis Vitamin D deficiency documented in this encounter Care Teams Sheet Metal Installer Relationship Specialty Start Date End Date Marychuy Martinez MD PCP - General Family Medicine 07/16/20 documented as of this encounter
--- OUTSIDE RECORDS SUMMARY | 2025-08-01 16:28 | XMS_ITS | Clinical Summary ---
Author Organization [facility] Address [address] [place] [address] Phone Care Team Providers Care Termite Exterminator Name Role Phone Marychuy Martinez MD Primary Care Pro vider Allergies No known active allergies Medications ergocalciferol (VITAMIN D) 50,000 unit capsuleIndicati ons:Vitamin D deficiency Take 1 capsule (50,000 Units total) by mouth once a week 12 capsule 1 5 Active cyclobenzaprine (FLEXERIL) 10 mg tablet Take 1 tablet (10 mg total) by mouth every 8 (eight) hours Post surgery: Every 8 hours for 4 days 12 tablet 5 Active cyanocobalamin (Vitamin B-12) 500 mcg tablet Take 1 tablet (500 mcg total) by mouth daily Start taking post op day 5 90 tablet 3 5 03/29/20 26 Active ferrous sulfate 325 mg (65 mg of elemental iron) tablet Take 1 tablet (325 mg total) by mouth daily Start taking post op day 5. Take with food and avoid taking within 2 hours of calcium 90 tablet 3 5 03/29/20 26 Active calcium citrate-vitamin D3 200 mg-6.25 mcg (250 unit) tablet Take 2 tablets by mouth 3 (three) times a day Start taking post op day 5 540 tablet 3 5 03/29/20 26 Active ursodioL (ACTIGALL) 300 mg capsule Take 1 capsule (300 mg total) by mouth 2 (two) times a day Start post-surgery 180 capsule 1 5 09/25/20 Active multivitamin with minerals tablet Take 2 tablets by mouth daily Start taking post op day 5 60 tablet 11 5 03/29/20 26 Active ondansetron (ZOFRAN) 4 mg tablet Take 1 tablet (4 mg total) by mouth every 6 (six) hours as needed for nausea 20 tablet 1 5 Active metFORMIN XR (GLUCOPHAGE XR) 500 mg 24 hr tabletIndicatio ns:Pre-diabetes TAKE TWO TABLETS BY MOUTH TWICE A DAY BEFORE BREAKFAST AND DINNER 360 tablet 1 5 Active aprepitant (EMEND) 40 mg capsule 5 Active spironolactone (ALDACTONE) 50 mg tabletIndicatio ns:Hypertension associated with diabetes (HCC),Hirsutism Take 1 tablet (50 mg total) by mouth 2 (two) times a day 180 tablet 5 06/22/20 Active Additional Information Patient not taking.Reported on 07/06/2025 Active Problems Problem Noted Date Diagnosed Date PCOS (polycystic ovarian syndrome) 06/23/2025 Hypertension associated with diabetes 06/22/2025 Assessment & Plan (06/23/2025 8:21 AM CDT): Uncontrolled Start spironolactone for concurrent hirsutism/PCOS, discussed should not take if becomes Check labs in 1-2 weeks Vitamin D deficiency 09/29/2024 Assessment & Plan (12/27/2024 1:50 PM CDT): Improved, but persistently low after ran out of 50,000 international units weekly, restart Assessment & Plan (09/29/2024 10:12 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): Recent level 10, uncontrolled Started on high dose supplementation Recheck in 12 weeks Pre-op evaluation 11/14/2022 Assessment & Plan (12/27/2024 1:57 PM CDT): Preoperative examination Procedure: bariatric surgery Date: TBD Risk of procedure: moderate RCRI: Class I risk, 3.9% 30d risk of , CT or cardiac arrest METs: moderate ACS NSQIP Surgical Risk Calculator: above average risk of surgical site infection and average risk of discharge to SNF or re-admission, otherwise below average risk Personal or family hx of problems with anesthesia: not personally, but family history of bradycardia Medical History / Risk factors: Cardiovascular disease (CT, angina, arrhythmia, HF): no Lung disease (asthma, COPD): no GI disease (liver, gall bladder): no Uro/Renal disease (CKD, nephrolithiasis): no MSK disease (neck or jaw pain/stiffness/arthritis): no Neurological disease (seizures, CVA): no Endocrine disease (thyroid, DM2): enlarged thyroid, TSH within normal limits. diabetic Overall assessment of risk: low. No contraindications to procedure, would be within acceptable risk. Assessment & Plan (11/14/2022 1:11 PM BEEF FARMER): Preoperative examination Procedure: gastric bypass Date: TBD Risk of procedure: moderate RCRI: Class I risk, 3.9% 30d risk of , CT or cardiac arrest METs: moderate ACS NSQIP Surgical Risk Calculator: below average risk Personal or family hx of problems with anesthesia: no Medical History / Risk factors: Cardiovascular disease (CT, angina, arrhythmia, HF): no Lung disease (asthma, COPD): no GI disease (liver, gall bladder): no Uro/Renal disease (CKD, nephrolithiasis): no MSK disease (neck or jaw pain/stiffness/arthritis): no Neurological disease (seizures, CVA): no Endocrine disease (thyroid, DM2): pre-dm Overall assessment of risk: low. No contraindications to procedure, would be within acceptable risk. Controlled type 2 diabetes m ellitus without complication, without long-term current use of insulin 10/16/2020 Assessment & Plan (06/23/2025 8:19 AM CDT): Lab Results Component Value Date HGBA1C 6.2 (H) 03/24/2025 Controlled Continue metformin Assessment & Plan (12/27/2024 1:53 PM CDT): Lab Results Component Value Date HGBA1C 6.5 (H) 12/22/2024 Controlled Continue metformin Assessment & Plan (09/26/2024 4:56 PM BEEF FARMER): Lab Results Component Value Date HGBA1C 6.3 (H) 08/02/2024 Controlled Continue metformin 1000mg twice a day Assessment & Plan (10/23/2023 9:40 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): Lab Results Component Value Date HGBA1C 5.5 10/23/2023 Contolled Continue metformin 1000mg XR twice a day Annual physical exam 07/16/2020 Assessment & Plan (09/26/2024 4:52 PM BEEF FARMER): Reviewed PMH & FH PHQ reviewed Reviewed medications and supplements HCM: orders placed as needed Assessment & Plan (11/14/2022 1:13 PM BEEF FARMER): Reviewed PMH & PHQ Screening PHQ-2 Total Score (If total score is 3 or more points, staff should administer the PHQ-9): 0 Reviewed medications and supplements HCM: orders placed as needed Assessment & Plan (08/25/2021 2:54 PM BEEF FARMER): Never smoker PAP UTD Planning : no, but not currently on contraception and only intermittently using condoms. Discussed options BP wnl PHQ Screening PHQ-2 Total Score (If total score is 3 or more points, staff should administer the PHQ-9): 0 Body mass index is 63.31 kg/m . Discussed diet and exercise Check labs Tdap UTD Flu at work Assessment & Plan (07/16/2020 3:14 PM CDT): Never smoker Alcohol use: declines PAP 01/2019 normal per patient, request records Planning : no has IUD BP wnl PHQ Screening PHQ-2 Total Score (If total score is 3 or more points, staff should administer the PHQ-9): 0 PHQ-9 Total Score: 0 Body mass index is 61.74 kg/m . Discussed diet and exercise Check labs Tdap UTD Flu at work Class 3 severe obesity due t o excess calories with serious comorbidity and body mass index (BMI) of 50.0 to 59.9 in adult 07/16/2020 Assessment & Plan (07/16/2020 3:21 PM CDT): BMI Follow-up includes: nutrition counseling and exercise counseling. Resolved Problems Problem Noted Date Diagnosed Date Resolved Date Gestational diabetes mellitu s (GDM) in second trimester 04/23/2023 08/31/2023 Overview (07/15/2023): Previously counseled Damian log in Username: [email or web address] Current regimen: 07/15/23, no changes Pt works nights Semglee Lispro: 10 with largest meal (typically 4 pm if she is working), 4 units with other meals regardless of the timing of the meal. increase evening meal dose by 2 additional units Plan [x] Serial growth scans q4 weeks [x] Weekly CGM review [x] testing (if A2GDM) twice weekly starting at 32 weeks-- pt will call if she needs to schedule here - Delivery at 39 0/7 - 39 6/7 weeks gestation - 2 hour/75g OGTT at visit Assessment & Plan (06/17/2023 10:28 AM CDT): Will have RAUL MD review today. Assessment & Plan (05/21/2023 2:00 PM CDT): Damian reviewed with elevated BS around 10 pm. Patient states she often eats around that time but has not been taking lispro because it was not a traditional meal time. Will start lispro 4 units today with any meal and continue 10 units with her bigger dinner. Vulvar varices during 04/23/2023 06/23/2025 Overview (04/23/2023): She has been having burning and pain in her left vulva. Exam today consistent with vulvar varicosities. We discussed conservative management strategies. Macrosomia of fetus affectin g management of mother in second trimester 04/23/2023 08/31/2023 Overview (07/13/2023): - Growth ultrasound 04/23/23 1248g, 92nd%ile, AC 96%ile. - 06/17/2023 EFW 3099g (94%) - 07/13/2023 EFW 4,366g (99%) - counseled 05/21/2023 06/17/2023 and 07/13/2023 Assessment & Plan (07/13/2023 10:10 AM CDT): Reviewed her US with LGA growth today. She continues with weekly RAUL JONES BS review. Again reviewed risks of LGA growth including increased risk for C/S delivery, operative delivery and shoulder dystocia and discussed risks of all three. Reviewed increased risk of hemorrhage and hypoglycemia. If delivered in the next few days would not recommend a C/S for LGA. Patient has a scheduled IOL tomorrow and is going to [facility] now for r/o preE. Phone call placed to Dr. Phillips team to review recommendations. They will call and notify [facility] team. Assessment & Plan (06/17/2023 10:28 AM CDT): Reviewed her US with LGA growth again today. Reviewed risks of LGA growth including increased risk for C/S delivery and operative delivery and briefly discussed risks of both. Reviewed risks of a shoulder dystocia. Reviewed increased risk of hemorrhage and hypoglycemia. Assessment & Plan (05/21/2023 2:02 PM CDT): Reviewed her US with LGA growth today. Reviewed importance of tight glycemic control. Reviewed risks of LGA growth including increased risk for C/S delivery, operative delivery and shoulder dystocia and briefly discussed risks. Reviewed increased risk of hemorrhage and hypoglycemia. Repeat growth was ordered. Maternal morbid obesity in s econd trimester, antepartum 04/20/2023 08/31/2023 Overview (05/21/2023): BMI: 62, previously counseled Plan [] recommend anesthesia consult in the 3rd trimester Supervision of high-risk pre gnancy, second trimester 04/20/2023 08/31/2023 Overview (07/13/2023): [x] Co-management [x] Blue Team Referring Provider: Mario Cottrell [phone] [] or Medicare Insurance [x] Dating Criteria: LMP 10/16/22 with BALDEV 07/23/23 [x] Labs: Rh [A+], Ab [negative], Rubella [immune], HIV [non-reactive], HepBSAg [non-reactive], RPR [non-reactive], Hep C [not done], Varicella [not done], GC/CT [negative/negative] [x] Genetic Screening: Quad Screen: negative [x] CBC/Hgb 13.0/39.2/plt 292 [x] Early 1hr GTT 01/27/23: [190] [x] UCx: 01/09/23 negative [x] Pap: 02/10/22: NILM [] LD ASA (if indicated) starting at 12 weeks: [] EPDS [ ]; PNBHS referral (if indicated) 2nd Tri Labs: [x] Anatomy ultrasound: complete with [facility], reviewed 06/17/2023 [x] CBC/1hr gtt at 24-28wks: completed with primary [x] Flu Shot (Jun-Sep): 06/17/2023 [] Tdap (27-36wks): encouraged she have done 3rd Tri Labs and delivery with primary OB. Recommend pt present now to [facility] for r/o preE in the setting of a severe range BP, repeat mild range. Call placed to Dr. Cottrell's team with recommendation for r/o preE and if continued mild range Bps admission and and delivery. S/p extensively LGA counseling and at this time pt would like to proceed with an IOL. She is aware of increased risks associated with LGA growth including C/S, vacuum/forceps assisted delivery, shoulder dystocia, hemorrhage and hypoglycemia. No diagnosis on [place] I 05/14/202204/23 Encounters Date Type Department Care Team Description 07/18/2025 Telephone [facility] Primary Care at [address] [place] [address] Marychuy Martinez MD Med Refill 07/06/2025 10:45 AM CDT Office Visit [facility] Minimally Invasive Surgery [address] [place] [address] Ramesh Ewing MD Morbid obesity (HCC) (Primary Dx) 06/22/2025 4:30 PM CDT Office Visit [facility] Primary Care at [address] [place] [address] Marychuy Martinez MD Type 2 diabetes mellitus with other specified complication, without long-term current use of insulin (Primary Dx); Hypertension associated with diabetes (HCC); Hirsutism; Vitamin D deficiency; Class 3 severe obesity due to excess calories with serious comorbidity and body mass index (BMI) of 50.0 to 59.9 in adult 05/25/2025 10:45 AM CDT Telemedicine [facility] Minimally Invasive Surgery [address] [place] [address] [address] [place] [address] Ramesh Ewing MD Morbid obesity (HCC) (Primary Dx) 05/16/2025 [facility] Minimally Invasive Surgery [address] [place] [address] 12th Floor, [place] [address] Ramesh Ewing MD Scheduling Appointments from Last 3 Months Immunizations Immunization Administration Dates Next Due DTP / HiB 04/02/1995, 4,01/04/1994,09/07 DTaP 05/10/1998 HPV, Quadrivalent 05/20/2011,07/26/2010,05/17/20 10 Hep A, Pediatric 05/20/2011,05/17/2010 Hep B Vaccine 02/09/2024,12/28/2023 Hep B, Adolescent or Pediatric 4,01/04/1994,1993,03/26 IPV 05/10/1998 Influenza, Quadrivalent, Leydi l Culture-based MDCK, Preservative Free, Antibiotic Free, Intramuscular 06/17/2023 Influenza, Quadrivalent, Spl it, Preservative Free, Intramuscular 08/21/2022 Influenza, Trivalent, Cell Culture-based MDCK, Preservative Free, Antibiotic Free, Intramuscular 08/25/2021 Influenza, Trivalent, IM (MDV) 07/08/2014 Influenza, Trivalent, Preser vative Free, Intramuscular 08/16/2024 Influenza, Unspecified 06/22/2025(Deferr ed: Patient Refused),07/19/2022 MMR 05/10/1998,07/05/1994 Meningococcal MCV4P (Menactra) 05/17/2010 OPV 04/02/1995, 4,01/04/1994,09/07 Pfizer SARS-CoV-2 Monovalent Vaccination (12+ Yrs) PURPLE 02/07/2021,01/17/2021 Pneumococcal Conjugate Pcv20 12/27/2024 Tdap 06/14/2014,05/31/2007 Varicella 05/17/2010,05/31/2007 Surgical History Surgery Date Site/Laterality Comments SECTION 07/14/23 Medical History Medical History Date Comments Gestational diabetes Morbid obesity (HCC) Pre-diabetes Type 2 diabetes mellitus Family History Medical History Relation Name Comments Anesthesia problems Cousin Cousins are 2nd or 3rd cousins. 3 w/ bradycardia w/ anesthesia - able to continue with colonoscopy and Lasik. One had severe bradycardia with anesthesia requiring DOS cancelation (unknown what surgery it was) and in ICU for a day but didn't get pacemaker Diabetes Maternal Grandfather Be Diabetes type II Maternal Grandfather Be Hypertension Maternal Grandfather Be Hypertension Maternal Grandmother Vera Sleep apnea Mother's Brother Breast cancer Mother's Sister 1 Tasha Hypertension Mother's Sister 2 Malig Hyperthermia Neg Hx Pseudochol deficiency Neg Hx Relation Name Status Comments Cousin Maternal Grandfather Be Maternal Grandmother Vera Mother's Brother Alive Mother's Sister 1 Tasha Mother's Sister 2 Alive Social History Tobacco Use Types Packs/Day Years Used Date Smoking Tobacco: Never Smokeless Tobacco: Never Tobacco Cessation:Counseling Given: Not Answered Alcohol Use Standard Drinks/Week Comments Not Currently [...] on file Legal Sex Female 6:42 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 Gender Identity Not on file Sexual Orientation Straight 02/20/2021 4: 08 AM CDT Obstetrics History Para Term AB IAB SAB Ectopic Multiple Livin g Live Births 3 1 1 1 1 1 Date Outcome GA Total Labor Labor/2nd/3rd Weight Sex Type Anes PTL Eleonora A1 A5 Name Clin AB 2013 Term 39w0 d 2.92 kg (6 lb 7 oz) F Vag-S pont N Living Last Filed Vital Signs Vital Sign Reading Time Taken Comments Blood Pressure 140/87 07/06/2025 10:38 AM CDT Pulse 87 07/06/2025 10:38 AM CDT Temperature 36.3 C (97.4 F) 06/22/2025 4:16 PM CDT Respiratory Rate 14 06/22/2025 4:16 PM CDT Oxygen Saturation 99% 06/22/2025 4:16 PM CDT Inhaled Oxygen Concentration - - Weight 140.2 kg (309 lb) 07/06/2025 10:38 AM CDT Height 165.1 cm (5' 5) 07/06/2025 10:38 AM CDT Body Mass Index 51.42 07/06/2025 10:38 AM CDT Plan of Treatment Health Maintenance Due Date Last Done Comments Albumin Creatinine Ratio, Urine 1993 Dilated Eye Exam 1993 Foot Exam 1993 Covid-19 Vaccine (3 - Pfizer risk series) 03/07/2021 02/07/2021, 01/17/2021 DTaP/Tdap/Td Vaccine (8 - Td or Tdap) 06/14/2024 06/14/2014, 05/31/2007, 05/10/1998, Additional history exists Lipid Panel 08/02/2025 08/02/2024, 11/05, 03/06/2022, Additional history exists Hemoglobin A1C 09/23/2025 03/24/2025, 12/04, 08/02/2024, Additional history exists Regular Well Visit/Exam 18-64 09/26/2025 09/26/2024, 11/14/2022, 08/22/2021, Additional history exists Influenza Vaccine (#1) 2026 , 06/17/2023, 08/21/2022, Additional history exists Postponed from 06/05/2025 (Patient declined, but will receive in the future) eGFR 04/12/2026 04/12/2025, 03/06, 08/02/2024, Additional history exists Depression Screening 06/22/2026 06/22/2025, 09/26/2024, 11/14/2022, Additional history exists Cervical Cancer Screening 07/11/20282024, 02/10/2022, 01/25/2019 Varicella Vaccines Completed 05/17/2010, 05/31/2007 HPV Vaccines Completed 05/20/2011, 07/06, 05/17/2010 Hepatitis B Screening Completed 02/09/2024 , 12/28/2023, 07/05/1994, Additional history exists Hepatitis C Screening Completed 12/22/2024 Pneumococcal vaccine <65 Completed 12/27/2024 Procedures Procedure Name Priority Date/Time Associated Diagnosis Comments HM PAP SMEAR Routine 07/11/2025 2:32 PM CDT EGFR Routine 04/12/2025 4:13 AM CDT HEMOGLOBIN A1C Routine 03/24/2025 11:50 AM CDT Preoperative testing HEPATITIS C ANTIBODY Routine 12/22/2024 7:28 AM CDT Need for hepatitis C screening test LIPID PANEL Routine 08/02/2024 10:42 AM CDT Morbid obesity (HCC) Encounter for pre-bariatric surgery counseling and education BMI 60.0-69.9, adult (HCC) from Last 3 Months or Most Recently Relevant to Health Maintenance Results * HM PAP SMEAR (07/11/2025 2:32 PM CDT) SCRIBED Pap test normal Historical Provider HEALTH MAINTENANCE Final Result * eGFR (04/12/2025 4:13 AM CDT) eGFR >90 >=60 mL/min/1. 73 m2 Comment: Interpretive Data Reference Interval Normal >/= 90 mL/min/1.73m2 Mildly decreased* 60 - 89 mL/min/1.73m2 Mildly to moderately decreased 45 - 59 mL/min/1.73m2 Moderately to severely decreased 30 - 44 mL/min/1.73m2 Severely decreased 15 - 29 mL/min/1.73m2 Kidney Failure < 15 mL/min/1.73m2 *Relative to young adult level Estimated glomerular filtration rate is determined by the 2020 CKD-EPI equation recommended by the National Kidney Foundation (A Unifying Approach to GFR Estimation: Recommendations of the NKF-ASK Task Force on Reassessing the Inclusion of Race in Diagnosing Kidney Disease, JASN 2020). The CKD-EPI equation should not be used for patients with unstable renal function and has not been validated in children and those over 70. Current interpretive data was last reviewed 2021. Blood 04/12/2025 4:13 AM CDT 04/12/2025 5:45 AM CDT Ramesh Ewing MD LAB BLOOD ORDERABLES Final Resul t [facility] [address] [facility]. [employer] [place] [address] * (ABNORMAL) Hemoglobin A1c (03/24/2025 11:50 AM CDT) Hgb A1C 6.2(H) 4.0 - 5.6 % Estimated Average Glucose 131 mg/dL [facility] GONZALEZ Comment: The ADA recommends reporting an estimated Average Glucose (eAG) with all Hemoglobin A1c results using the equation derived from a study of 507 normal and diabetic adults. Minority populations were underrepresented and children were not included. (Diabetes Care 31:1094-3417, 2008). The eAG is not equivalent to a fasting glucose. Blood 03/24/2025 11:5 0 AM CDT 03/24/2025 12:19 PM CDT Zarina Huntley NP LAB BLOOD ORDERABLES Final Re sult Performing Organization Address City/[facility]/ZIP Co de Phone Number [facility] [id number] [facility] Department [place] [address] * Hepatitis C antibody Blood (12/22/2024 7:28 AM CDT) Hep C Ab Nonreactive Nonreactive Comment: Antibodies to HCV not detected. Does NOT exclude the possibility of recent exposure to HCV. Current interpretive data was last revised on 22 Interpretive Data Nonreactive: Antibodies to HCV not detected. Does NOT exclude the possibility of recent exposure to HCV. Equivocal: Equivocal for HCV antibodies. Supplemental molecular testing will be automatically performed to determine infection status in accordance with current CDC screening recommendations. Reactive: Positive for HCV antibodies. This may represent current or past HCV infection. Supplemental molecular testing will be automatically performed to determine current infection status in accordance with current CDC screening recommendations. Interpretive data was last revised on 2019. Blood 12/22/2024 7:28 AM CDT 12/22/2024 10:21 AM CDT Marychuy Martinez MD LAB MICROBIOLOGY - GENERAL ORDERABLES Final Result Performing Organization Address City/[facility]/ZIP Co de Phone Number [facility] [address] [facility] Department of Laboratories [place], [place] [id number] * (ABNORMAL) Lipid panel (08/02/2024 10:42 AM CDT) Cholesterol 194 30 - 199 mg/dL Comment: Interpretive Data Ages < or = 19 years Acceptable: <170 mg/dL Borderline high: 170-199 mg/dL High: >or= 200 mg/dL Ages > or = 20 years Desirable: <200 mg/dL Borderline high: 200-239 mg/dL High: >or= 240 mg/dL Literature References: 1. Expert Panel on Integrated Guidelines for Cardiovascular Health and Risk Reduction in Children and Adolescents. Pediatrics 2011;128:S213 2. NCEP Expert Panel. Circulation 2004;110:227 Current Interpretive Data was last revised on 2018. Triglycerides 109 <=149 mg/dL [facility] Comment: Interpretive Data Ages < or = 9 years Acceptable: <75 mg/dL Borderline high: 75-99 mg/dL High: >or= 100 mg/dL Ages 10 to 20 years Acceptable: <90 mg/dL Borderline high: 90-129 mg/dL High: >or= 130 mg/dL Ages > or = 20 years Desirable: <150 mg/dL Borderline high: 150-199 mg/dL High: 200-499 mg/dL Very high: >or= 499 mg/dL Literature References: 1. Expert Panel on Integrated Guidelines for Cardiovascular Health and Risk Reduction in Children and Adolescents. Pediatrics 2011;128:S213 2. NCEP Expert Panel. Circulation 2004;110:227 Current Interpretive Data was last revised on 2018. HDL 35(L) >=40 mg/dL [facility] Comment: Interpretive Data Ages < or = 19 years Acceptable: >45 mg/dL Borderline low: 40-45 mg/dL Low: <40 mg/dL Ages > or = 20 years Desirable: >or= 60 mg/dL Low: <40 mg/dL Literature References: 1. Expert Panel on Integrated Guidelines for Cardiovascular Health and Risk Reduction in Children and Adolescents. Pediatrics 2011;128:S213 2. NCEP Expert Panel. Circulation 2004;110:227 Current Interpretive Data was last revised on 2018. LDL, calculated 139(H) <=129 mg/dL [facility] Comment: Interpretive Data Ages < or = 19 years Acceptable: <110 mg/dL Borderline high: 110-129 mg/dL High: >or= 130 mg/dL Ages > or = 20 years Optimal: <100 mg/dL Near optimal: 100-129 mg/dL Borderline high: 130-159 mg/dL High: >160 mg/dL Calculated using the Webb LDL-C estimating equation. This equation was implemented on 2024. Prior to this date LDL-C was estimated using the Friedewald equation. Literature References: 1. Expert Panel on Integrated Guidelines for Cardiovascular Health and Risk Reduction in Children and Adolescents. Pediatrics 2011;128:S213 2. NCEP Expert Panel. Circulation 2004;110:227 3. Jon M et al. THEODORE Cardiol. 2020 February 02;5(5):540-548. doi: 10.1001/[email or web address] Current Interpretive Data was last revised on 2024. Non-HDL Cholesterol 159 mg/dL [facility] MORENO Comment: Interpretive Data Ages < or = 19 years Acceptable: <120 mg/dL Borderline high: 120-144 mg/dL High: >145 mg/dL Ages > or = 20 years When triglycerides are >200 mg/dL, Non-HDL cholesterol is a secondary target of therapy with treatment goals that are 30 mg/dL greater than the LDL cholesterol target. Literature References: 1. Expert Panel on Integrated Guidelines for Cardiovascular Health and Risk Reduction in Children and Adolescents. Pediatrics 2011;128:S213 2. NCEP Expert Panel. Circulation 2004;110:227 Current Interpretive Data was last revised on 2018. Chol/HDL ratio 6 [facility] Blood 08/02/2024 10:4 2 AM CDT 08/02/2024 5:27 PM CDT Zander Toribio NP LAB BLOOD ORDERABLES Final Result [facility] [address] Department [place] [address] from Last 3 Months or Most Recently Relevant to Health Maintenance Insurance [employer] Address: [address] [place] [address] [employer] [employer] Address: [address] [place] [address] [employer] Address: [address] [place] [address] Advance Directives For more information, please contact: [phone] * Full Code (Latest Code Status on File) Date Activated Date Inactivated Comments 04/11/2025 3:56 PM 04/12/2025 10:29 PM Care Teams Termite Exterminator Relationship Specialty Start Date End Date Marychuy Martinez MD PCP - General Family Medicine 07/16/20
--- OUTSIDE RECORDS SUMMARY | 2025-08-01 16:28 | XMS_ITS | Clinical Summary ---
Author Organization [facility] Address [address] 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 This disclosure is being madepursuant to the Care Everywhere program and may not contain all information available regarding this patient. Last updated 18.[employer] Allergies No known active allergies Medications * Be aware that medications may not be up to date on this document. Alwaysverify current medications with the patient. Vit-Fe Fumarate-FA ( vitamin) 28-0.8 MG tablet Take 1 (one) tablet by mouth once daily Active aspirin (Aspirin) 81 MG chew tablet Take 1 (one) tablet by mouth once daily Active Blood Glucose Monitoring Suppl (Accu-Chek Guide) w/Device KITIndications: Insulin controlled gestational diabetes mellitus (GDM) in second trimester (HCC) Use 1 Each as directed 1 Each 1 03/03/20 23 Active blood glucose test stripIndication s:Insulin controlled gestational diabetes mellitus (GDM) in second trimester (HCC) Use 1 (one) strip 5 times daily 150 strip 5 03/03/20 23 Active SOFTCLIX LANCETS MISCIndications :Insulin controlled gestational diabetes mellitus (GDM) in second trimester (HCC) Use 1 Each 5 times daily 100 Each 1 03/03/20 23 Active metFORMIN (Glucophage) 1000 MG tablet Take 1 (one) tablet by mouth 2 times daily with morning and evening meal Active insulin glargine-YFGN (Semglee) 100 unit/mL vial Inject 28 (twenty eight) Units to 70 (seventy) Units subcutaneously as directed 30 mL 03/13/20 Active Additional Information Patient taking differently:28-70 Units Subcutaneous DIRECTED,18 units in am 28 in pm, Informant: Patient, Reported on 03/25/2023 Glucagon (Baqsimi One Pack) 3 MG/DOSE POWD [place] 3 mg into the nose as needed 2 Each 1 03/13/20 Active blood glucose test stripIndication s:Pre-diabetes Use 1 (one) strip 5 times daily Check blood sugar with test strip 5 times daily. 150 strip 11 03/13/20 Active Continuous Blood Gluc Sensor (PictureMenu Damian Sensor System) MISCIndications :Pre-diabetes Use 1 Each as directed Change sensor every 14 days. 3 Each 03/16/20 Active docusate sodium (Colace) 100 MG capsuleIndicati ons:Constipatio n Take 1 (one) capsule by mouth 2 times daily Reasons: Constipation 60 capsule 2 03/25/20 Active insulin lispro (HumaLOG KWIKPEN) 200 UNIT/ML Inject 4 (four) Units subcutaneously 2 times daily Start with 4 units before breakfast, 4 units before dinner. Increase as directed. 15 mL 4 03/25/20 Active Insulin Pen Needle 32G X 4 MM MISCIndications :Pregestational diabetes mellitus, modified White class B (HCC) Use 1 Each 4 times daily 200 Each 5 03/25/20 Active Family History Medical History Relation Name Comments Hypertension Maternal Grandmother None Known Other maternal aunt Relation Name Status Comments Maternal Grandmother Other maternal aunt Social History Tobacco Use Types Packs/Day Years Used Date Smoking Tobacco: Never Smokeless Tobacco: Never Tobacco Cessation:Counseling Given: Not Answered Comments No Sex and Gender Information Value Date Recorded Sex Assigned at Not on file Legal Sex Female 9:38 AM CDT Gender Identity Not on file Sexual Orientation Not on file Last Filed Vital Signs Vital Sign Reading Time Taken Comments Blood Pressure 131/70 03/25/2023 1:07 PM CDT Pulse 99 03/25/2023 1:07 PM CDT Temperature - - Respiratory Rate 16 03/25/2023 1:07 PM CDT Oxygen Saturation 100% 03/25/2023 1:07 PM CDT Inhaled Oxygen Concentration - - Weight 175.6 kg (387 lb 3.2 oz) 03/25/2023 1:07 PM CDT Height 165.1 cm (5' 5) 03/25/2023 1:07 PM CDT Body Mass Index 64.43 03/25/2023 1:07 PM CDT Plan of Treatment Health Maintenance Due Date Last Done Comments HIV SCREENING 2008 HEPATITIS C SCREENING 03/22/2011 DTAP/TDAP/TD VACCINES (1 - Tdap) 2012 HEPATITIS B VACCINE (1 of 3 - 19+ 3-dose series) 2012 PAP SMEAR 2014 HPV VACCINE (1 - 3-dose SCDM series) 2020 DEPRESSION SCREENING 10/05/2024 COVID-19 VACCINE (3 - 2024-2 6 season) 2025 02/07/2021, 01/17/2021 INFLUENZA VACCINE (#1) 2025 2, 08/25/2021, 07/08/2014 ZOSTER VACCINE (1 of 2) 2043 HIB VACCINE Aged Out No longer eligi ble based on patient's age to complete this topic MENINGOCOCCAL (Group B) VACCINE SHARED DECISION-MAKING Aged Out No longer eligible based on patient's age to complete this topic MENINGOCOCCAL GROUPS A/C/Y/W VACCINE Aged Out No longer eligible b ased on patient's age to complete this topic PNEUMOCOCCAL VACCINE Aged Out No long er eligible based on patient's age to complete this topic Insurance [employer]
== END 2025-08-01 14:13 | disposition home or self-care (01) ==
LOC: ANHLAB 14:13
PROVIDERS: Visit Provider Student in an Organized Health Care Education/Training Program
DX: Z30.9 Encounter for contraceptive management, unspecified (principal)
CPT/HCPCS: 36415; 84702